=== PATIENT | male | born 1955 | race Caucasian/White ===

== ENCOUNTER 2018-05-22 14:21 | Inpatient (IN) | payer OTHER ==
[~2018-05-22] VITALS: Ht 182.9 cm; Wt 109.8 kg
[2018-05-22] MEDS ORDERED: FERR SULFATE325 MG PO (15:13)
[2018-05-22] MEDS ORDERED: LOPID600 MG PO (15:14)
[2018-05-22] MEDS ORDERED: ATORVASTATIN CA40 MG PO (15:15)
[2018-05-22] MEDS ORDERED: LISINOPRIL10 MG PO (15:15)
[2018-05-22] MEDS ORDERED: PHENOBARB64.8 MG PO (15:16)
[2018-05-22] MEDS ORDERED: EPIVIR300 MG PO (15:16)
[2018-05-22] MEDS ORDERED: SUSTIVA600 MG PO (15:17)
[2018-05-22] MEDS ORDERED: VIREAD300 MG PO (15:18)
[2018-05-22] MEDS ORDERED: ATORVASTATIN CA20 MG PO (15:18)
[2018-05-22] MEDS ORDERED: PERCOGESI1 PO (15:20)
[2018-05-22 16:10] LABS: HEMATOCRIT 33.4 % (39.0-50.0); HEMOGLOBIN 11.4 g/dl (14.0-18.0); IMMATURE GRANULOCYTES 0.7 % (0.0-5.0); MEAN CELL VOLUME 94.6 fL CALC (80.0-100.0); MEAN CORPUSCULAR HGB 32.3 pG CALC (26.0-32.0); MEAN CORPUSCULAR HGB CONC 34.1 g/L CALC (32.0-36.0); NEUT# 18.75 thou/uL (1.82-7.42); RED BLOOD COUNT 3.53 mill/uL (4.70-6.10); RED CELL DISTRI WIDTH 14.9 % (11.5-15.5)
[2018-05-22 16:27] LABS: ALBUMIN 4.1 g/dL (3.2-5.0); BILIRUBIN, TOTAL 0.5 mg/dL (0.0-1.4); CREATININE 2.2 mg/dL (0.7-1.3); POTASSIUM 4.2 mmol/l (3.5-5.1); TOTAL PROTEIN 7.3 g/dL (6.3-8.2)
[2018-05-22 21:00] VITALS: BP 124/76
[2018-05-22 21:36] LABS: URINE BILIRUBIN - DIPSTICK NEGATIVE (NEGATIVE); URINE BLOOD DIPSTICK LARGE (NEGATIVE); URINE COLOR YELLOW; URINE GLUCOSE - DIPSTICK NEGATIVE (NEGATIVE); URINE KETONE NEGATIVE (NEGATIVE); URINE LEUK ESTERASE NEGATIVE (NEGATIVE); URINE NITRITE - DIPSTICK NEGATIVE (Negative); URINE PH 5.5 (4.5-8.0); URINE PROTEIN - DIPSTICK TRACE mg/dL (NEG-TRACE); URINE UROBILINOGEN - DIPSTICK 0.2 E.U./dL (0.2)
[2018-05-22 21:37] LABS: URINE CLARITY CLEAR
[2018-05-22 21:46] LABS: URINE RBC 25-50 RBC/hpf (0-5); URINE SQUAMOUS EPITHELIAL CELL FEW EPI/hpf (0-FEW)
[2018-05-23 00:15] VITALS: BP 108/60
[2018-05-23 05:03] VITALS: BP 114/69
[2018-05-23 09:33] VITALS: BP 103/57
[2018-05-23 11:45] LABS: HEMATOCRIT 30.6 % (39.0-50.0); HEMOGLOBIN 10.2 g/dl (14.0-18.0); IMMATURE GRANULOCYTES 0.4 % (0.0-5.0); MEAN CELL VOLUME 95.9 fL CALC (80.0-100.0); MEAN CORPUSCULAR HGB CONC 33.3 g/L CALC (32.0-36.0); NEUT# 10.37 thou/uL (1.82-7.42); RED BLOOD COUNT 3.19 mill/uL (4.70-6.10); RED CELL DISTRI WIDTH 14.9 % (11.5-15.5)
[2018-05-23 12:03] LABS: ANION GAP 12 (6-22 (CALC)); BUN 26 mg/dL (8-23); BUN/CREATININE RATIO 19 (12-20 (CALC)); CARBON DIOXIDE 22 mmol/l (22-30); CHLORIDE 112 mmol/l (95-108); CREATININE 1.3 mg/dL (0.7-1.3); GFR 56 ML/MIN (>=60 (CALC)); GFR FOR AFR.AMER. > 60 ML/MIN (>=60 (CALC)); POTASSIUM 3.7 mmol/l (3.5-5.1); SODIUM 143 mmol/l (137-146)
[2018-05-23 13:00] VITALS: BP 100/60
[2018-05-23 16:00] VITALS: BP 107/64
[2018-05-23 19:51] VITALS: BP 101/59
[2018-05-24 00:29] VITALS: BP 124/78
[2018-05-24 05:17] VITALS: BP 114/66
[2018-05-24 05:55] LABS: ANION GAP 14 (6-22 (CALC)); BUN 16 mg/dL (8-23); BUN/CREATININE RATIO 15 (12-20 (CALC)); CARBON DIOXIDE 21 mmol/l (22-30); CHLORIDE 113 mmol/l (95-108); CREATININE 1.1 mg/dL (0.7-1.3); GFR > 60 ML/MIN (>=60 (CALC)); GFR FOR AFR.AMER. > 60 ML/MIN (>=60 (CALC)); POTASSIUM 4.1 mmol/l (3.5-5.1); SODIUM 144 mmol/l (137-146)
[2018-05-24 05:58] LABS: HEMOGLOBIN 9.7 g/dl (14.0-18.0); IMMATURE GRANULOCYTES 0.4 % (0.0-5.0); MEAN CELL VOLUME 97.4 fL CALC (80.0-100.0); MEAN CORPUSCULAR HGB 31.5 pG CALC (26.0-32.0); MEAN CORPUSCULAR HGB CONC 32.3 g/L CALC (32.0-36.0); NEUT# 6.84 thou/uL (1.82-7.42); RED BLOOD COUNT 3.08 mill/uL (4.70-6.10); RED CELL DISTRI WIDTH 15.2 % (11.5-15.5)
[2018-05-24 09:05] VITALS: BP 113/64
[2018-05-24 11:25] VITALS: BP 133/66
[2018-05-24 11:35] LABS: C. DIFFICILE TOXIN A&B NEGATIVE (NEGATIVE)
[2018-05-24 15:37] VITALS: BP 116/67
[2018-05-24 19:38] VITALS: BP 126/80
[2018-05-25] VITALS (7 sets, daily range): BP systolic 105–141; BP diastolic 59–87
[2018-05-25 05:10] LABS: HEMATOCRIT 31.9 % (39.0-50.0); HEMOGLOBIN 10.4 g/dl (14.0-18.0); MEAN CELL VOLUME 97.3 fL CALC (80.0-100.0); MEAN CORPUSCULAR HGB 31.7 pG CALC (26.0-32.0); MEAN CORPUSCULAR HGB CONC 32.6 g/L CALC (32.0-36.0); RED BLOOD COUNT 3.28 mill/uL (4.70-6.10); RED CELL DISTRI WIDTH 15.1 % (11.5-15.5)
[2018-05-25 05:33] LABS: ALBUMIN 3.6 g/dL (3.2-5.0); ALKALINE PHOSPHATASE 78 u/l (38-126); ANION GAP 13 (6-22 (CALC)); BILIRUBIN, TOTAL 0.3 mg/dL (0.0-1.4); BUN 12 mg/dL (8-23); BUN/CREATININE RATIO 12 (12-20 (CALC)); CARBON DIOXIDE 24 mmol/l (22-30); CHLORIDE 111 mmol/l (95-108); GFR > 60 ML/MIN (>=60 (CALC)); GFR FOR AFR.AMER. > 60 ML/MIN (>=60 (CALC)); POTASSIUM 4.4 mmol/l (3.5-5.1); SGOT/AST 38 u/l (19-48); SGPT/ALT 42 u/l (11-66); SODIUM 145 mmol/l (137-146); TOTAL PROTEIN 6.8 g/dL (6.3-8.2)
[2018-05-26 00:40] VITALS: BP 137/77
[2018-05-26 04:45] VITALS: BP 138/85
[2018-05-26 09:07] VITALS: BP 129/68
[2018-05-26] MEDS ORDERED: MIRALAX3350 NF PO (09:20)
[2018-05-26] MEDS ORDERED: FLORASTOR250 M1 PO (09:20)
[2018-05-26] MEDS ORDERED: AUGMENTIN875TAB PO (09:20)
[2018-05-26] MEDS ORDERED: DOXYCYCL HYC100 MG PO (09:20)
== END 2018-05-26 13:54 | DRG 975 ==
LOC: ED 14:21 → ED-I 20:00 → ED 20:13 → MS2 20:14
PROVIDERS: Family Medicine; Internal Medicine; ADMIT General Practice; ATTEND General Practice
PROC: 02HV33Z Insertion of Infusion Device into Superior Vena Cava, Percutaneous Approach (ICD-10-PCS; principal; 2018-05-22)
DX: A41.9 Sepsis, unspecified organism (principal); B20 Human immunodeficiency virus [HIV] disease; L03.116 Cellulitis of left lower limb; R65.20 Severe sepsis without septic shock; N17.9 Acute kidney failure, unspecified; I47.2 Ventricular tachycardia; I25.10 Atherosclerotic heart disease of native coronary artery without angina pectoris; G40.909 Epilepsy, unspecified, not intractable, without status epilepticus; K59.00 Constipation, unspecified; I87.2 Venous insufficiency (chronic) (peripheral); K40.90 Unilateral inguinal hernia, without obstruction or gangrene, not specified as recurrent; R19.7 Diarrhea, unspecified; D63.8 Anemia in other chronic diseases classified elsewhere; R59.0 Localized enlarged lymph nodes
CPT/HCPCS: J1650; J3370

== ENCOUNTER 2019-06-23 00:41 | Inpatient (IN) | payer OTHER ==
[~2019-06-23] VITALS: Ht 182.9 cm; Wt 110.8 kg
[2019-06-23] VITALS (67 sets, daily range): BP systolic 62–172; BP diastolic 35–97
--- NOTE | 2019-06-23 00:01 | NUR ---
eyes closed. no distress. campus monitor shows sinus rhythm hr 82.
[~2019-06-23 00:41] MED LIST: ATORVASTATIN CA20 MG PO; ATORVASTATIN CA40 MG PO; AUGMENTIN875TAB PO; DOXYCYCL HYC100 MG PO; EPIVIR300 MG PO; FERR SULFATE325 MG PO; FLORASTOR250 M1 PO; LISINOPRIL10 MG PO; LOPID600 MG PO; MIRALAX3350 NF PO; PERCOGESI1 PO; PHENOBARB64.8 MG PO; SUSTIVA600 MG PO; VIREAD300 MG PO
--- NOTE | 2019-06-23 00:41 | NUR ---
PT ARRIVED VIA EMS IN [facility] WITH REPORTED HYPOTENSION FEVERS PT HAS HAD 1100CC NSS BOLUS PER EMS FOR LOW BP.PT HAS RED INJESTED LLE WHICH IS CHRONIC PER CHART AND ESCORTS FROM FACILITY PT IS A/O X3 DENIES PAIN NO SOB.
[2019-06-23] MEDS ORDERED: DOXEPIN HCL100 MG PO (01:24)
[2019-06-23] MEDS ORDERED: ROCEPHIN 1 GM1 GM IM (01:25)
[2019-06-23] MEDS ORDERED: CIPRO400 MG/200 IV (01:26)
[2019-06-23] MEDS ORDERED: LEVETIRACETAM500 MG PO (01:32)
[2019-06-23] MEDS ORDERED: FLUOXETINE20 MG PO (01:33)
[2019-06-23] MEDS ORDERED: HALOPERIDOL10 MG PO (01:34)
[2019-06-23] MEDS ORDERED: ACETAMINOPHEN325 MG PO (01:37)
[2019-06-23 01:38] LABS: IMMATURE GRANULOCYTES 0.9 % (0.0-5.0); MEAN CELL VOLUME 90.5 fL CALC (80.0-100.0); MEAN CORPUSCULAR HGB 29.7 pG CALC (26.0-32.0); MEAN CORPUSCULAR HGB CONC 32.9 g/L CALC (32.0-36.0); RED BLOOD COUNT 3.16 mill/uL (4.70-6.10); RED CELL DISTRI WIDTH 16.9 % (11.5-15.5)
[2019-06-23 01:40] LABS: HEMATOCRIT 28.6 % (39.0-50.0); HEMOGLOBIN 9.4 g/dl (14.0-18.0); PLATELET COUNT 212 thou/uL (130-400)
[2019-06-23 01:41] LABS: MANUAL DIFFERENTIAL YES
--- NOTE | 2019-06-23 01:50 | NUR ---
BP HAS FALLEN SEE VS FLOW SHEET DR Carr INFORMED
[2019-06-23 01:56] LABS: ALBUMIN 3.4 g/dL (3.2-5.0); BILIRUBIN, TOTAL 0.5 mg/dL (0.0-1.4); CREATININE 1.5 mg/dL (0.7-1.3); POTASSIUM 3.6 mmol/l (3.5-5.1); TOTAL PROTEIN 6.4 g/dL (6.3-8.2)
[2019-06-23 02:04] LABS: BAND 4 % (0-8)
--- NOTE | 2019-06-23 02:45 | NUR ---
SR NO ECTOPY W/P/D SKIN PT UNABLE TO VOID DR Lilly THRASHER
--- NOTE | 2019-06-23 03:05 | NUR ---
17F KOVACS INSERTED PER ADITYA HARRIS YELLOW URINE 200CC RETURN SPEC TO LAB
[2019-06-23 03:27] LABS: URINE BILIRUBIN - DIPSTICK NEGATIVE (NEGATIVE); URINE BLOOD DIPSTICK TRACE-INTACT (NEGATIVE); URINE COLOR YELLOW; URINE GLUCOSE - DIPSTICK NEGATIVE (NEGATIVE); URINE KETONE NEGATIVE (NEGATIVE); URINE NITRITE - DIPSTICK NEGATIVE (Negative); URINE PH 5.5 (4.5-8.0); URINE PROTEIN - DIPSTICK TRACE mg/dL (NEG-TRACE); URINE UROBILINOGEN - DIPSTICK 0.2 E.U./dL (0.2)
[2019-06-23 03:30] LABS: URINE LEUK ESTERASE NEGATIVE (NEGATIVE)
--- NOTE | 2019-06-23 04:25 | NUR ---
PHONE REPORT TO NURSE SYDNI IN ICU
--- NOTE | 2019-06-23 04:30 | NUR ---
PT TRANSPORTED TO ICU VIA STRETCHER IN STABLE CONDITION
--- NOTE | 2019-06-23 04:30 | NUR ---
63 yr old male admitted icu5 per stretcher from er. transferred self to bed. bed weight obtained. lle red & edematous. photo taken. lunchroom monitor shows sinus rhythm hr 96. #18 rac saline lock. #18 lt hand. ns bolus cont. history obtained per pt, er record & [facility] record. oriented to room. fall precautions initiated. guards x 2 @ bedside.
--- NOTE | 2019-06-23 06:45 | NUR ---
REPORT RECEIVED PT RESTING IN BED RESP ARE EVEN AND UNLABORED. NO DISTRESS NOTED.
--- NOTE | 2019-06-23 07:45 | NUR ---
PT SET UP FOR AM MEAL
--- NOTE | 2019-06-23 08:00 | NUR ---
PT RESTING IN BED ASLEEP AROUSES TO VERBAL STIMULI. PT IS ALERT ORIENTED TO SELF AND PLACE. PT STATES THAT IT IS 2009. REORIENTATION SUCCESSFUL. PT STATES THAT HE HAS "PAIN WITH SWEAT".QUESTIONED PATIENT TO WHAT HE MEANT PATIENT UNABLE TO DESCRIBE WHAT HE MEANT. LEFT LOWER EXTREMTITY RED WARM TO TOUCH AND 2+ EDEMA NOTED. GOOD PEDAL PULSES. 2 GUARDS AT BEDSIDE. R LEG SHACKLED. KOVACS DRAINING CLEAR YELLOW URINE. CALL LIGTH IN REACH. WILL CONTINUE TO MONITOR.
--- NOTE | 2019-06-23 08:15 | NUR ---
DR ALEXANDER CALLED FOR UPDATE. UPDATE PROVIDED. NEW ORDERS RECEIVED
--- NOTE | 2019-06-23 08:25 | NUR ---
DR ALEXANDER PHONED FOR UPDATE. NEW ORDERS RECEIVED.
--- NOTE | 2019-06-23 08:33 | NUR ---
UPDATE PROVIDED TO LIZY ADKINS AT [facility]
--- NOTE | 2019-06-23 08:40 | NUR ---
PT TO ULTRASOUND AT THIS TIME VIA WHEELCHAIR ACCOMPANIED BY IN FLIGHT TECHNICIAN
--- NOTE | 2019-06-23 09:05 | NUR ---
PT RETUNED FROM RADIOLOGY VIA WHEELCHAIR ASSISTED BACK TO BED.
--- NOTE | 2019-06-23 09:08 | NUR ---
S: EDD WOODARD is a 63 M who presents with LEFT LEG CELLULITIS. He has a history of MENTAL DISORDER, SEIZURE DISORDER, HIV, AND CAD. All medications in patient's chart were reviewed. O: VS: BP 92/60 MMHG, P 86 BPM, RR 16 BPM, T 97.2 F ACTUAL BW 110.79 KG, ADJ BW 90.9 KG, HT 72 IN, Scr= 1.5 MG/DL, CrCl= 65.7 ml/min A: Blood culture is pending. P: Patient is on ZOSYN 3.375 G IV Q6H. Vancomycin ordered for pharmacy to dose. Start Vancomycin 1000MG IV Q12H AT 0200 AND 1400. Vancomycin trough is drawn before the 4th dose on 06/25/19 @ 0130. Vancomycin goal trough is between 10-15 mcg/ml. Pharmacy will follow and or advise on antibiotics use as needed.
[2019-06-23] MEDS ORDERED: BACLOFEN20 MG PO (09:37)
[2019-06-23] MEDS ORDERED: BENADRYL 50MG C50 MG PO (09:42)
--- NOTE | 2019-06-23 10:00 | NUR ---
DR ALEXANDER AT BEDSIDE AT THIS TIME. BP 75/45. PT IMMEADIATELY PLACED IN TRENDELENBERG. EW ORDERS RECEIVED.
--- NOTE | 2019-06-23 10:05 | NUR ---
PHONED ER FOR CENTRAL LINE PLACEMENT
--- NOTE | 2019-06-23 10:20 | NUR ---
LEVOPHED STARTED PER TITRATION AT [facility]. 1000CC BOLUS IVF INFUSING. BP [id number]
--- NOTE | 2019-06-23 10:30 | NUR ---
PHENYLEPHRINE 100MCG GIVEN IVP BY Kaylie KWON RN PER ORDERS
--- NOTE | 2019-06-23 10:40 | NUR ---
CONSENT OBTAINED FOR CENTRAL LINE PLACEMENT AND BLOOD AND OR BLOOD PRODUCTS
--- NOTE | 2019-06-23 10:45 | NUR ---
ER NOTIFIED THAT THEY WERE NOT AVAILABLE AT THIS TIME TO ASSIST IN CENTRAL LINE
--- NOTE | 2019-06-23 10:52 | NUR ---
GABBY A RIAN AT THIS TIME
[2019-06-23 11:09] LABS: HEMATOCRIT 29.6 % (39.0-50.0); HEMOGLOBIN 9.7 g/dl (14.0-18.0); MEAN CELL VOLUME 91.4 fL CALC (80.0-100.0); MEAN CORPUSCULAR HGB 29.9 pG CALC (26.0-32.0); MEAN CORPUSCULAR HGB CONC 32.8 g/L CALC (32.0-36.0); RED BLOOD COUNT 3.24 mill/uL (4.70-6.10); RED CELL DISTRI WIDTH 17.1 % (11.5-15.5)
[2019-06-23 11:31] LABS: ANION GAP 12 (6-22 (CALC)); BUN 27 mg/dL (8-23); BUN/CREATININE RATIO 23 (12-20 (CALC)); CARBON DIOXIDE 20 mmol/l (22-30); CHLORIDE 109 mmol/l (95-108); CREATININE 1.2 mg/dL (0.7-1.3); GFR > 60 ML/MIN (>=60 (CALC)); GFR FOR AFR.AMER. > 60 ML/MIN (>=60 (CALC)); POTASSIUM 3.7 mmol/l (3.5-5.1); SODIUM 138 mmol/l (137-146)
--- NOTE | 2019-06-23 11:35 | NUR ---
DR MARKHAM AND DR ALEXANDER AT BEDSIDE AT THIS TIME FOR CENTRAL LINE PLACEMENT
--- NOTE | 2019-06-23 12:06 | NUR ---
RADIOLOGY AT BEDSIDE AT THIS TIME TO CONFIRM CENTRAL LINE PLACEMENT.
--- NOTE | 2019-06-23 14:00 | NUR ---
PT RESTING IN BED. GURADS AT BEDSIDE. RESP ARE EVEN AND UNLABORED. NO DISTRESS NOTED. CALL LIGHT IN REACH. WILL CONTINUE TO MONITOR.
--- NOTE | 2019-06-23 16:00 | NUR ---
PT SECRETARY TO BOARD OF COMMISSIONERS LIGHT TO STATE THAT HIS LEG IS PAINFUL WHEN HE WALKS. EXPLAINED TO PATIENT THAT HE HAD NOT BEEN OUT OF BED. PT AGREED AND VERBALIZED UNDERSTANDING. PT STATES THAT THERE IS PAIN WHEN HE USES IT TO BOOST SELF UP IN BED. QUESTIONED IS THERE CONSTANT PAIN. PT STATED NO. EXPLAINED THAT I WAS APPREHENSIVE TO GIVE A MED FOR PAIN THAT HAD THE POTENTIAL TO LOWER BP DUE TO BEING ON MEDICATIONS TO RAISE BP. PT VERBALIZED UNDERSTANDING AND AGREED TO TREATMENT PLAN.
--- NOTE | 2019-06-23 17:30 | NUR ---
PT SET UP FOR PM MEAL AT THIS TIME.
--- NOTE | 2019-06-23 18:20 | NUR ---
PT RESTING IN BED WTIH EYES CLOSED. RESP ARE EVEN AND UNLABORED. NO DISTRESS NOTED. CALL LIGHT IN REACH. WILL CONTINUE TO MONITOR.
--- NOTE | 2019-06-23 19:00 | NUR ---
awakens easily. denies distress. o2 cont per nc. relief map modeler shows sinus rhythm hr 88. #20 lt hand ns infusing @ 100cchr, #18 rac & rij tlc saline locks in place. refused po fluids. king cath in place. urine clear yellow. fall precautions cont. guards x2 @ bedside.
--- NOTE | 2019-06-23 21:21 | NUR ---
c/o "feel hot." temp 99.7. blanket removed. drank 1 glass of h2o.
[2019-06-24] VITALS (27 sets, daily range): BP systolic 73–153; BP diastolic 40–81
--- NOTE | 2019-06-24 02:00 | NUR ---
resting quietly. resps veronica & unlabored. no apparent distress.
--- NOTE | 2019-06-24 04:00 | NUR ---
blood drawn & sent to lab.
[2019-06-24 04:29] LABS: HEMATOCRIT 26.3 % (39.0-50.0); HEMOGLOBIN 8.6 g/dl (14.0-18.0); MEAN CORPUSCULAR HGB 29.8 pG CALC (26.0-32.0); MEAN CORPUSCULAR HGB CONC 32.7 g/L CALC (32.0-36.0); RED BLOOD COUNT 2.89 mill/uL (4.70-6.10); RED CELL DISTRI WIDTH 17.3 % (11.5-15.5)
[2019-06-24 04:48] LABS: ALBUMIN 2.9 g/dL (3.2-5.0); ALKALINE PHOSPHATASE 74 u/l (38-126); ANION GAP 10 (6-22 (CALC)); BILIRUBIN, TOTAL 0.3 mg/dL (0.0-1.4); BUN 16 mg/dL (8-23); BUN/CREATININE RATIO 15 (12-20 (CALC)); CARBON DIOXIDE 23 mmol/l (22-30); CHLORIDE 114 mmol/l (95-108); GFR > 60 ML/MIN (>=60 (CALC)); GFR FOR AFR.AMER. > 60 ML/MIN (>=60 (CALC)); POTASSIUM 3.9 mmol/l (3.5-5.1); SGOT/AST 45 u/l (19-48); SODIUM 143 mmol/l (137-146); TOTAL PROTEIN 5.9 g/dL (6.3-8.2)
--- NOTE | 2019-06-24 05:56 | NUR ---
eyes closed. no distress. youth nutritional monitor shows sinus rhythm hr 65. guards x2 remain @ bedside.
--- NOTE | 2019-06-24 06:50 | NUR ---
RECIEVED REPORT FROM SUNIL TROY. ASSUMED PT CARE.
--- NOTE | 2019-06-24 07:30 | NUR ---
PT RESTING IN BED, GUARDS AT BEDSIDE. PT A&OX3, ABLE TO MAKE NEEDS KNOWN. ASSESSMENT COMPLETED. PT AFEBRILE, CONTINUES WITH LLE EDEMA, REDNESS AND HEAT NOTED FROM KNEE TO ANKLE. PT STATES DISCOMFORT TO LLE. RIJ/TL CONTINUES WITH NS@100ML/HR. NO S/S OF INFILTRATION, REDNESS OR INFECTION AT SITE. KOVACS REMAINS PATENT, DRAINING TO BSD VIA GRAVITY. CLEAR YELLOW URINE NOTED. PT STATES LAST BM 06/20/19. ABDOMEN SOFT, DISTENDED, BS HYPOACTIVE X4. CALL LIGHT IN REACH. WILL MONITOR.
--- NOTE | 2019-06-24 08:30 | NUR ---
DR. ALEXANDER AT BEDSIDE FOR ASSESSMENT AND TO DISCUSS PLAN OF CARE, NEW ORDERS RECIEVED.
--- NOTE | 2019-06-24 09:18 | NUR ---
Valerie COOPER RN FROM [facility] CALLED FOR UPDATE ON PT.
--- NOTE | 2019-06-24 09:57 | NUR ---
PT NOTED LAYING ON R SIDE, WITH PILLOW BETWEEN LEG. PT REPORTS DISCOMFORT 5/10 TO LLE, MEDICATED WITH TYLENOL ORDERED. PP+, CONTINUES WITH REDNESS AND EDEMA TO LLE, HEAT BLE. PT WITH B/P 86/52, [facility]. WILL MONITOR CLOSELY, GUARDSX2 AT BEDSIDE. RETURNED PHONE CALL TO PATRICIO CONTRERAS @[phone], LEFT MESSAGE.
--- NOTE | 2019-06-24 10:37 | NUR ---
PT B/P 73/47, DR. ALEXANDER NOTIFIED. NEW ORDERS RECIEVED.
--- NOTE | 2019-06-24 11:23 | NUR ---
DIETARY ON UNIT, LUNCH TRAY SET UP. HOB UP, PT REPOSITIONED. B/P 100/54.
--- NOTE | 2019-06-24 12:00 | NUR ---
PT ASSISTED TO BSC, LARGE BM, THEN BACK TO BED. PT TOLERATED TRANSFER WELL. CALL LIGHT IN REACH. WILL MONITOR.
--- NOTE | 2019-06-24 12:34 | NUR ---
PT ASKED WHAT TYPE OF SANDWICH HE ATE FOR LUNCH, PT STATED "IT TASTED LIKE FISH" AFTER CHECKING PT TRAY, PT NOTIFIED IT WAS IN FACT TUNAFISH SANDWICH HE HAD ORDERED AT BREAKFAST TIME. PT THEN STATED HE WAS ALLERGIC TO FISH, WHEN ASKED WHAT REACTION HE HAS HE STATED "I THINK I GET SOB, MY THROAT SWELLS" .PT VSS, NO REDNESS OR SWELLING NOTED AT FACE OR THROAT, NO SOB OR CHANGE IN RESPIRATIONS NOTED AT THIS TIME. NO PREVIOUS ALLERGY TO FISH NOTED. FISH ALLEGY NOTED IMMEDIATELY IN CHART AND DIETARY NOTIFIED. CALL LIGHT IN REACH. WILL MONITOR CLOSELY. GUARDSX2 REMAIN AT BEDSIDE.
--- NOTE | 2019-06-24 13:28 | NUR ---
PT RESTING IN BED, RESPIRATIONS EVEN. UNLABORED. OFFERS NO COMPLAINTS AT THIS TIME. LAB AT BEDSIDE FOR BLOOD DRAW.
--- NOTE | 2019-06-24 14:15 | NUR ---
NOTIFIED ANJELICA IN PHARMACY AND DR. ALEXANDER OF PT VANCO TROUGH 8.
--- NOTE | 2019-06-24 14:37 | NUR ---
S: EDD WOODARD is a 63 M who presents with CELLULITIS/SEPTIC SHOCK. He has a history of HIV, HX. OF DRUG ABUSE, AND RESIDES IN A [facility] CURRENTLY. All medications in patient's chart were reviewed. O: VS: BP 116/73, P 64, RR 18,T 97.2 Scr= 1 VANCOMYCIN TROUGH= 8 L A: Blood culture is pending. TROUGH IS SUBTHERAPEUTIC. INCREASE IN DOSE IS WARRANTED. P: Patient is on ZOSYN 3.375 GM IV Q6H AND VANCOMYCIN 1 GM IV Q12H. Vancomycin ordered for pharmacy to dose. INCREASE Vancomycin 1 GM IV Q8H. Vancomycin trough is drawn before the 4th dose on 06/25/19 AT 1330. Vancomycin goal trough is between 15-20 mcg/ml. Pharmacy will follow and or advise on antibiotics use as needed.
--- NOTE | 2019-06-24 16:37 | NUR ---
PT SLEEPING IN BED, OFFERS NO COMPLAINTS AT THIS TIME. CONTINUES ON LEVOPHED GTT @2MCG/MIN. CALL LIGHT IN REACH. WILL MONITOR.
--- NOTE | 2019-06-24 17:56 | NUR ---
PT RESTING IN BED WITH EYES CLOSED. PT DENIES DISCOMFORT AT THIS TIME. CALL LIGHT IN REACH. GUARDS REMAINS AT BEDSIDE. WILL MONITOR.
--- NOTE | 2019-06-24 19:15 | NUR ---
awakens easily. denies distress. o2 cont per nc. case monitor shows sinus rhythm hr 77. #20 lt hand & #18 rac saline locks. rij tlc in place ns @ 100cchr & levo infusing @ 2mcg/kg. po fluids taken well. king cath in place. urine clear yellow. lle remains red & edematous. shackle cont to rle. guards x2 remain @ bedside. fall precautions cont.
--- NOTE | 2019-06-24 22:00 | NUR ---
awake. no distress. keller machine operator shows sinus rhythm pvcs hr 76.
[2019-06-25] VITALS (26 sets, daily range): BP systolic 113–155; BP diastolic 54–87
--- NOTE | 2019-06-25 00:01 | NUR ---
eyes closed. no distress. guards x2 @ bedside.
--- NOTE | 2019-06-25 02:00 | NUR ---
resting quietly. resps even & unlabored. no apparent distress.
--- NOTE | 2019-06-25 04:45 | NUR ---
blood drawn & sent to lab.
[2019-06-25 05:06] LABS: HEMATOCRIT 27.5 % (39.0-50.0); MEAN CELL VOLUME 91.1 fL CALC (80.0-100.0); MEAN CORPUSCULAR HGB 29.8 pG CALC (26.0-32.0); MEAN CORPUSCULAR HGB CONC 32.7 g/L CALC (32.0-36.0); RED BLOOD COUNT 3.02 mill/uL (4.70-6.10); RED CELL DISTRI WIDTH 17.3 % (11.5-15.5)
[2019-06-25 05:30] LABS: ALBUMIN 3.1 g/dL (3.2-5.0); ALKALINE PHOSPHATASE 85 u/l (38-126); ANION GAP 11 (6-22 (CALC)); BILIRUBIN, TOTAL 0.4 mg/dL (0.0-1.4); BUN 11 mg/dL (8-23); BUN/CREATININE RATIO 13 (12-20 (CALC)); CARBON DIOXIDE 23 mmol/l (22-30); CHLORIDE 112 mmol/l (95-108); CREATININE 0.9 mg/dL (0.7-1.3); GFR > 60 ML/MIN (>=60 (CALC)); GFR FOR AFR.AMER. > 60 ML/MIN (>=60 (CALC)); POTASSIUM 3.9 mmol/l (3.5-5.1); SGOT/AST 51 u/l (19-48); SODIUM 142 mmol/l (137-146); TOTAL PROTEIN 6.3 g/dL (6.3-8.2)
--- NOTE | 2019-06-25 05:56 | NUR ---
eyes closed. no acute change in condition. no distress.
--- NOTE | 2019-06-25 06:45 | NUR ---
RECIEVED REPORT FROM SUNIL TROY. ASSUMED PT CARE.
--- NOTE | 2019-06-25 07:30 | NUR ---
PT RESTING IN BED, GUARDS X2 REMAIN AT BEDSIDE. A&OX3, ABLE TO MAKE NEEDS KNOWN. REMAINS NSR ON TELEMETRY, HR 84. DENIES CHEST PAIN, SOB OR DISTRESS AT THIS TIME, RESPIRATIONS EVEN/UNLABORED, SA02@95% RA, PT DECLINES 02@2LPM VIA NC AT THIS TIME. ABDOMEN DISTENDED, SOFT, NON-TENDER, LBM 06/25/19. BSX4 ACTIVE. LLE REMAIN RED, FROM CALF TO ANKLE, PP+. 18G TO RAC/SL, 20G TO LH/SL BOTH FLUSH WITHOUT DIFFICULTY, NO REDNESS OR S/S OF INFILTRATION AT SITE. RIJ/TL WITH NS@100ML/HR AND LEVOPHED @2MCG/MIN CONTINUES, NO S/S OF INFILTRATION OR INFECTION AT SITE. PT WITH TEMP OF 100.4, MEDICATED ORDERED. CALL LIGHT IN REACH. WILL MONITOR.
--- NOTE | 2019-06-25 07:50 | NUR ---
DIETARY ON UNIT, PT REPOSITIONED SELF, BREAKFAST TRAY SET UP.
--- NOTE | 2019-06-25 09:00 | NUR ---
PT ASSISTED TO BSC, LG YAMILA REED BM. THEN BACK TO BED. PT TOLERATED TRANSFER WELL. CALL LIGHT IN REACH, GUARDS REMAIN A BEDSIDE.WILL MONITOR.
--- NOTE | 2019-06-25 10:19 | NUR ---
PT RESTING IN BED WATCHING TV, OFFERS NO COMPLAINTS AT THIS TIME. AFEBRILE. NSR ON TELEMETRY.
--- NOTE | 2019-06-25 11:44 | NUR ---
DR. TATUM AT BEDSIDE FOR ASSESSMENT AND TO DISCUSS PLAN OF CARE, NEW ORDERS RECIEVED. DIETARY ON UNIT, PT REPOSITIONED SELF. LUNCH TRAY SET UP.
--- NOTE | 2019-06-25 14:10 | NUR ---
IV site TO LH &RAC discontinued, cath intact. No edema , no redness, voices no discomfort.
--- NOTE | 2019-06-25 14:28 | NUR ---
PT ASSISTED TO BSC, LARG BM NOTED. THEN BACK TO BED. PT TOLERATED TRANSFER WELL . GUARDSX2 REMAIN AT BEDSIDE. CALL LIGHT IN REACH. WILL MONITOR.
--- NOTE | 2019-06-25 14:39 | NUR ---
S: EDD WOODARD is a 63 M who presents with CELLULITIS/SEPTIC SHOCK. He has a history of HIV, HX. OF DRUG ABUSE, AND RESIDES IN A NURSING HOME CURRENTLY. All medications in patient's chart were reviewed. O: VS: BP 121/69, P 78, RR 16,T 97.9 Scr= 0.9 VANCOMYCIN TROUGH= 12 A: Blood culture is pending. TROUGH IS SUBTHERAPEUTIC. INCREASE IN DOSE IS WARRANTED. P: Patient is on ZOSYN 3.375 GM IV Q6H AND VANCOMYCIN 1 GM IV Q12H. Vancomycin ordered for pharmacy to dose. INCREASE Vancomycin 1.25 GM IV Q8H. Vancomycin trough is drawn before the 4th dose on 06/26/19 AT 2130. Vancomycin goal trough is between 15-20 mcg/ml. Pharmacy will follow and or advise on antibiotics use as needed. ANJELICA STEWARTD
--- NOTE | 2019-06-25 15:56 | NUR ---
PT RESTING IN BED WITH BLANKEY OVER HEAD. PT OFFERS NO COMPLAINTS AT THIS TIME. RESPIRATIONS EVEN/UNLABORED. NSR ON TELEMETRY, HR 70. CALL LIGHT IN REACH, GUARDS REMAIN AT BEDSIDE.
--- NOTE | 2019-06-25 17:37 | NUR ---
DIETARY ON UNIT, PT REPOSITIONED SELF. DINNER TRAY SET UP.
--- NOTE | 2019-06-25 19:50 | NUR ---
PT AWAKE RESTING IN BED WATCHING T.V. TWO GUARDS AT BEDSIDE. RESP EVEN AND UNLABORED. O2 SAT 96% ON R/. LUNGS CLEAR BILAT. RT IJ TRIPLE LUMEN IS PATENT WITH DRESSING CLEAN AND DRY. IVF NSS AT 100CC/HR. ABD SOFT AND NONDISTENDED WITH BOWEL SOUNDS PRESENT. KOVACS IS PATENT DRAINING CLEAR YELLOW URINE. PT HAS +3 EDEMA NOTED ON LEFT LOWER EXT. NO EDEMA NOTED ON RT LOWER EXT. PEDAL PULSES PALPATED BILAT. LEFT LOWER EXT IS RED FROM KNEE TO FOOT AND ELEVATED ON A PILLOW. PT OFFERS NO COMPLAINTS. VSS. B/P 134/69, AFEBRILE 98.9. MONITOR SR HR 70'S. FREQUENT ROUNDS MADE. CALL BRONSON WITHIN REACH .
--- NOTE | 2019-06-25 21:15 | NUR ---
PT RESTING IN BED WATCHING T.V. VSS. OFFERS NO COMPLAINTS. RT IJ PATENT NO REDNESS OR TENDERNESS AT SITE. TWO GUARDS AT BEDSIDE. FREQUENT ROUNDS MADE. CALL BRONSON WITHIN REACH.
--- NOTE | 2019-06-25 22:03 | NUR ---
RESTING IN BED WITH EYES CLOSED. VSS. NO DISTRESS NOTED. GUARDS AT BEDSIDE. KOVACS IS PATENT DRAINING CLEAR YELLOW URINE. FREQUENT ROUNDS MADE. CALL BRONSON WITHIN REACH.
[2019-06-26] VITALS (13 sets, daily range): BP systolic 106–165; BP diastolic 62–92
--- NOTE | 2019-06-26 00:16 | NUR ---
PT RESTING IN BED WITH EYES CLOSED. PT WOKE. PT AFEBRILE. SKIN WARM AND DRY. RT IJ IS PATENT WITH NSS AT 100CC/HR. LEFT LEG IS ELEVATED ON A PILLOW. PT DENIES ANY DISCOMFORT. TWO GUARDS AT BEDSIDE. RT LEG CUFFED TO THE BED. VSS. MONITOR READING SR. FREQUENT ROUNDS MADE. CALL BRONSON WITHIN REACH.
--- NOTE | 2019-06-26 02:10 | NUR ---
PT RESTING IN BED WITH EYES CLOSED. NO DISTRESS NOTED. RESP EVEN AND UNLABORED. RT IJ IS PATENT NSS AT 100CC/HR. FERMÍN IS PATENT. GUARDS AT BEDSIDE. FREQUENT ROUNDS MADE. CALL BRONSON WITHIN REACH.
--- NOTE | 2019-06-26 04:10 | NUR ---
VSS. RESTING IN BED WITH EYES CLOSED. NO DISTRESS NOTED. IJ IS PATENT. TWO GUARDS REMAIN AT BEDSIDE. MONITOR READING SR. B/P 143/66. FREQUENT ROUNDS MADE. CALL BRONSON WITHIN REACH.
--- NOTE | 2019-06-26 06:07 | NUR ---
RESTING IN BED WITH EYES CLOSED . ASSESSMENT UNCHANGED. IJ IS PATENT. LEFT LEG IS ELEVATED ON A PILLOW. OFFERS NO COMPLAINTS. MONITOR SR. GUARDS REMAIN AT BEDSIDE. CALL BRONSON WITHIN REACH.
--- NOTE | 2019-06-26 06:45 | NUR ---
RECIEVED REPORT FROM PATRICIO GALVAN. [facility] PT CARE.
[2019-06-26 06:47] LABS: HEMATOCRIT 27.5 % (39.0-50.0); IMMATURE GRANULOCYTES 1.7 % (0.0-5.0); MEAN CELL VOLUME 91.1 fL CALC (80.0-100.0); MEAN CORPUSCULAR HGB 29.8 pG CALC (26.0-32.0); MEAN CORPUSCULAR HGB CONC 32.7 g/L CALC (32.0-36.0); NEUT# 4.29 thou/uL (1.82-7.42); RED BLOOD COUNT 3.02 mill/uL (4.70-6.10); RED CELL DISTRI WIDTH 17.2 % (11.5-15.5)
--- NOTE | 2019-06-26 07:00 | NUR ---
PT SITTING UP IN BED. A&OX3, ABLE TO MAKE NEEDS KNOWN. SR ON TELEMETRY, HR 68. DENIES CHEST PAIN, SOB OR DISTRESS AT THIS TIME. REPIRATIONS EVEN/UNLABORED, SA02@95%RA, LS CLEAR THROUGHOUT. ABDOMEN SOFT, DISTENDED, NON-TENDER, BSX4 ACTIVE, LBM 9-21-19. CONTINUES WITH LLE REDNESS FROM KNEE TO ANKLE, LESS TODAY. +3 EDEMA, PP+ BLE. NO EDEMA NOTED RLE. PT REMAINS AFEBRILE.FOLET REMAINS PATENT, DRAINING CLEAR YELLOW URINE TO BSD VIA GRAVITY. RIJ/TL INFUSING NS@100ML/HR, SITE CDI, NO REDNESS/DISTENTION NOTED.GUARDS REMAIN AT BEDSIDE.CALL LIGHT IN REACH. WILL MONITOR.
[2019-06-26 07:05] LABS: ANION GAP 11 (6-22 (CALC)); BUN 9 mg/dL (8-23); BUN/CREATININE RATIO 10 (12-20 (CALC)); CARBON DIOXIDE 28 mmol/l (22-30); CHLORIDE 108 mmol/l (95-108); CREATININE 0.9 mg/dL (0.7-1.3); GFR > 60 ML/MIN (>=60 (CALC)); GFR FOR AFR.AMER. > 60 ML/MIN (>=60 (CALC)); POTASSIUM 3.8 mmol/l (3.5-5.1); SODIUM 143 mmol/l (137-146)
--- NOTE | 2019-06-26 07:41 | NUR ---
PT REPOSITIONED SELF, BREAKFAST TRAY SET UP.
--- NOTE | 2019-06-26 10:00 | NUR ---
DR. TATUM AT BEDSIDE FOR ASSESSMENT AND TO DISCUSS PLAN OF CARE. NEW ORDERS RECIEVED.
--- NOTE | 2019-06-26 11:00 | NUR ---
PT ASSISTED TO BSC, LARGE SOFT BM. THEN BACK TO BED.
--- NOTE | 2019-06-26 12:49 | NUR ---
PT RESTING IN BED, WITH HEAD COVERED WITH BLANKET. RESPIRATIONS EVEN/UNLABORED, AFEBRILE, TEMP 97.6. PT OFFERS NO COMPLAINTS AT THIS TIME. CALL LIGHT IN REACH. WILL MONITOR.
--- NOTE | 2019-06-26 13:38 | NUR ---
REPORT CALLED TO PATRICIO WOODS. TRANSFERRED PT TO MS2, BED 260. GUARDS REMAIN WITH PT.
--- NOTE | 2019-06-26 14:00 | NUR ---
PT RECEIVED TO M/S ROOM 260 FROM ICU VIA WHEELCHAIR, ACCOMPANIED BY TWO GUARDS. PT IS APPROPRIATE, SLOW TO ANSWER. LEFT LEG CELLULITIC, 3+ EDEMATOUS.
--- NOTE | 2019-06-26 16:28 | NUR ---
PT AT REST IN THE BED, NO DISTRESS, NO CHANGE IN STATUS.
--- NOTE | 2019-06-26 18:25 | NUR ---
PT REMAINS AT REST IN THE BED, ABX INFUSING ORDERED.
--- NOTE | 2019-06-26 19:08 | NUR ---
REPORT FROM PEGGY RN. PT RESTING IN BED. ALERT AND ORIENTED. NO APPARENT RESPIRATORY DISTRESS NOTED. X2 GUARDS PRESENT IN ROOM. IV SITE APPEARS HEALTHY, DRESSING CDI. PT DENIES ANY PAIN OR DISCOMFORT. DISCUSSED POC. PT VERBALIZED UNDERSTANDING. CALL LIGHT WITHIN REACH. WILL CONTINUE TO MONITOR.
--- NOTE | 2019-06-26 21:35 | NUR ---
VANCO TROUGH COLLECTED FROM TRIPLE LUMEN IJ PER PROTOCOL. PT TOLERATED WELL.
--- NOTE | 2019-06-27 00:57 | NUR ---
PT RESTING IN BED WITH EYES CLOSED. X2 GUARDS AT BEDSIDE. PT SHACKLED TO BED. NO APPARENT DISTRESS NOTED. IV ABT INFUSING WITHOUT DIFFICULTY. CALL LIGHT WITHIN REACH. WILL CONTINUE TO MONITOR.
[2019-06-27 04:00] VITALS: BP 152/84
--- NOTE | 2019-06-27 04:58 | NUR ---
PT RESTING IN BED WITH EYES CLOSED. STATUS UNCHANGED. X2 GUARDS REMAIN AT BEDSIDE. IV FLUIDS INFUSING WITHOUT DIFFICULTY. CALL LIGHT WITHIN REACH.
[2019-06-27 07:33] VITALS: BP 160/75
--- NOTE | 2019-06-27 08:00 | NUR ---
REPORT WAS RECEIVED FROM YONATAN. ASSESSMENT DONE. PT IS A&O X3. PT DENIES PAIN AT THIS TIME. RESPS EVEN AND UNLABORED. TELE IN PLACE. X2 GUARDS IN ROOM. KOVACS IS PATENT WITH YELLOW URINE. +2 BLE AND MILDY RED. PT DENIES NEEDS AT THIS TIME. CALL LIGHT IN REACH.
[2019-06-27] MEDS ORDERED: DOXYCYCL HYC100 MG PO (09:22)
[2019-06-27] MEDS ORDERED: AMOX/K CLAV875 M1 PO (09:22)
--- NOTE | 2019-06-27 09:45 | NUR ---
CALLED JOSELYN FROM [facility] TO GAVE UPDATE RE: PT POC D/C TODAY.
--- NOTE | 2019-06-27 09:58 | NUR ---
REMOVED PT KOVACS AND PT TOLERATED WELL. X2 GUARDS IN ROOM.
[2019-06-27 11:00] VITALS: BP 146/79
--- NOTE | 2019-06-27 11:10 | NUR ---
S: EDD WOODARD is a 63 M who presents with CELLULITIS/SEPTIC SHOCK . He has a history of HIV, DRUG ABUSE. Pt resides in nursing home currently. All medications in patient's chart were reviewed. O: VS: BP 146/79mmHg, P 73bpm , RR 22bpm , T 97.4 F W 110.79 kg, HT 72 inches, Scr=0.9mg/dL, UnYl=716.4ml/min Vanco Trough= 19 mcg/ml A: Blood culture is pending. P: Patient is on VANCOMYCIN 1.25 G IV Q8H and ZOSYN 3.375 G IV Q8H. Pt being discharged today on Augmentin 875mg PO BID X 10 days and Doxycycline 100mg PO BID x 10 days. Vancomycin ordered for pharmacy to dose. Vancomycin goal trough is between 15-20 mcg/ml. Pharmacy will follow and or advise on antibiotics use as needed.
--- NOTE | 2019-06-27 11:56 | NUR ---
Discharge instructions given. Patient verbalizes understanding of same. Discharged in stable condition via Wheelchair to X2 GUARDS with staff. All belongings sent with pt.
== END 2019-06-27 11:55 | disposition designated cancer center or children's hospital (05) | DRG 871 ==
LOC: ED 00:41 → ED-I 01:20 → ED 03:37 → ICU 03:38 → MS2 06-26 13:56
PROVIDERS: Emergency Medicine; Internal Medicine; ADMIT Internal Medicine; ATTEND Internal Medicine
PROC: 02HV33Z Insertion of Infusion Device into Superior Vena Cava, Percutaneous Approach (ICD-10-PCS; principal; 2019-06-23)
PROC: 0T9B70Z Drainage of Bladder with Drainage Device, Via Natural or Artificial Opening (ICD-10-PCS; 2019-06-23)
DX: A41.9 Sepsis, unspecified organism (principal); R65.21 Severe sepsis with septic shock; L03.116 Cellulitis of left lower limb; N17.9 Acute kidney failure, unspecified; I10 Essential (primary) hypertension; I95.9 Hypotension, unspecified; I89.0 Lymphedema, not elsewhere classified; I25.10 Atherosclerotic heart disease of native coronary artery without angina pectoris; D63.8 Anemia in other chronic diseases classified elsewhere; G40.909 Epilepsy, unspecified, not intractable, without status epilepticus; Z95.5 Presence of coronary angioplasty implant and graft; Z21 Asymptomatic human immunodeficiency virus [HIV] infection status; Z86.718 Personal history of other venous thrombosis and embolism
CPT/HCPCS: J1650; J3370

== ENCOUNTER 2020-08-04 14:40 | Emergency (ER) | payer OTHER ==
[~2020-08-04] VITALS: Ht 182.9 cm; Wt 115.5 kg
[~2020-08-04 14:40] MED LIST changes: +ACETAMINOPHEN325 MG PO; +AMOX/K CLAV875 M1 PO; +BACLOFEN20 MG PO; +BENADRYL 50MG C50 MG PO; +CIPRO400 MG/200 IV; +DOXEPIN HCL100 MG PO; +FLUOXETINE20 MG PO; +HALOPERIDOL10 MG PO; +LEVETIRACETAM500 MG PO; +MINERI1 TOP; +ROCEPHIN 1 GM1 GM IM
[2020-08-04 15:42] LABS: IMMATURE GRANULOCYTES 0.6 % (0.0-5.0); MEAN CELL VOLUME 93.5 fL CALC (80.0-100.0); MEAN CORPUSCULAR HGB 30.3 pG CALC (26.0-32.0); MEAN CORPUSCULAR HGB CONC 32.4 g/dL CAL (32.0-36.0); NEUT# 17.34 thou/uL (1.82-7.42); RED BLOOD COUNT 2.77 mill/uL (4.70-6.10); RED CELL DISTRI WIDTH 15.6 % (11.5-15.5)
[2020-08-04 15:47] LABS: HEMATOCRIT 25.9 % (39.0-50.0); HEMOGLOBIN 8.4 g/dl (14.0-18.0)
[2020-08-04 15:58] LABS: ALBUMIN 4.6 g/dL (3.2-5.0); CREATININE 1.8 mg/dL (0.7-1.3); POTASSIUM 4.3 mmol/l (3.5-5.1); TOTAL PROTEIN 8.9 g/dL (6.3-8.2)
[2020-08-04 15:59] LABS: BILIRUBIN, TOTAL 0.5 mg/dL (0.0-1.4)
[2020-08-04 16:19] LABS: URINE BILIRUBIN - DIPSTICK NEGATIVE (NEGATIVE); URINE BLOOD DIPSTICK LARGE (NEGATIVE); URINE COLOR RED; URINE GLUCOSE - DIPSTICK 100 mg/dL (NEGATIVE); URINE KETONE 15 mg/dL (NEGATIVE); URINE PROTEIN - DIPSTICK >=300 mg/dL (NEG-TRACE); URINE SPECIFIC GRAVITY 1.015; URINE UROBILINOGEN - DIPSTICK >=8.0 E.U./dL (0.2)
[2020-08-04 16:24] LABS: URINE LEUK ESTERASE MODERATE (NEGATIVE); URINE NITRITE - DIPSTICK POSITIVE (Negative)
[2020-08-04 16:42] LABS: URINE BACTERIA MANY hpf; URINE RBC TNTC RBC/hpf (0-5); URINE SQUAMOUS EPITHELIAL CELL FEW EPI/hpf (0-FEW); URINE WBC 20-50 WBC/hpf (0-5)
[2020-08-04 18:00] VITALS: BP 203/94
[2020-08-04 18:34] LABS: ACT PARTIAL THROMBO TIME 99.3 SECONDS (20.0-32.5); PROTHROMBIN TIME > 170.9 SECONDS (9.0-12.5)
[2020-08-04] MEDS ORDERED: WARFARIN5 MG PO (19:01)
== END 2020-08-04 18:00 | disposition short-term general hospital (02) | DRG 65 ==
LOC: ED 14:40
DX: I60.9 Nontraumatic subarachnoid hemorrhage, unspecified (principal); S37.001A Unspecified injury of right kidney, initial encounter; R31.9 Hematuria, unspecified; R58 Hemorrhage, not elsewhere classified; I10 Essential (primary) hypertension; G40.909 Epilepsy, unspecified, not intractable, without status epilepticus; Z21 Asymptomatic human immunodeficiency virus [HIV] infection status; I25.10 Atherosclerotic heart disease of native coronary artery without angina pectoris; I73.9 Peripheral vascular disease, unspecified; F31.9 Bipolar disorder, unspecified; W19.XXXA Unspecified fall, initial encounter; Y92.149 Unspecified place in prison as the place of occurrence of the external cause; Z86.718 Personal history of other venous thrombosis and embolism; Z79.01 Long term (current) use of anticoagulants; Z95.5 Presence of coronary angioplasty implant and graft; Z20.828 Contact with and (suspected) exposure to other viral communicable diseases

== ENCOUNTER 2020-08-21 12:13 | Inpatient (IN) | payer OTHER ==
[~2020-08-21] VITALS: Ht 182.9 cm; Wt 100.0 kg
[~2020-08-21 12:13] MED LIST changes: +WARFARIN5 MG PO
--- NOTE | 2020-08-21 12:13 | NUR ---
PATIENT TO ROOM VIA EMS AND PHYSICIAN NOTIFIED OF PATIENT STATUS
--- NOTE | 2020-08-21 13:00 | NUR ---
IV ACCESS AND LAB DRAWN ORDERED, PT TOLERATED WITHOUT INCIDENT, EKG COMPLETED ORDERED. GUARG REMAINS AT BEDSIDE PT IOS VERY VAGUE WITH ANSWERS TO ANY QUESTIONS.
[2020-08-21 13:49] LABS: HEMATOCRIT 31.3 % (39.0-50.0); HEMOGLOBIN 9.7 g/dl (14.0-18.0); IMMATURE GRANULOCYTES 0.4 % (0.0-5.0); MEAN CELL VOLUME 96.6 fL CALC (80.0-100.0); MEAN CORPUSCULAR HGB 29.9 pG CALC (26.0-32.0); RED BLOOD COUNT 3.24 mill/uL (4.70-6.10); RED CELL DISTRI WIDTH 16.1 % (11.5-15.5)
[2020-08-21 14:00] LABS: ALBUMIN 4.2 g/dL (3.2-5.0); ALKALINE PHOSPHATASE 123 u/l (38-126); ANION GAP 12 (6-22 (CALC)); BILIRUBIN, TOTAL 0.5 mg/dL (0.0-1.4); BUN 19 mg/dL (8-23); BUN/CREATININE RATIO 18 (12-20 (CALC)); CARBON DIOXIDE 25 mmol/l (22-30); CHLORIDE 107 mmol/l (95-108); CREATININE 1.1 mg/dL (0.7-1.3); GFR > 60 ML/MIN (>=60 (CALC)); GFR FOR AFR.AMER. > 60 ML/MIN (>=60 (CALC)); POTASSIUM 3.9 mmol/l (3.5-5.1); SODIUM 140 mmol/l (137-146); TOTAL PROTEIN 8.2 g/dL (6.3-8.2)
[2020-08-21 14:01] LABS: SGOT/AST 67 u/l (19-48)
[2020-08-21 14:09] LABS: C-REACTIVE PROTEIN < 0.5 mg/dL (0-0.9)
--- NOTE | 2020-08-21 15:02 | NUR ---
PT RESTING, GUARD REMAINS AT BEDSIDE NO S/S OF DISTRESS NOTED, CALL AUDIE HERNANDEZ
--- NOTE | 2020-08-21 16:00 | NUR ---
PT RESTING OFFERS NO COMPLAINTS IVF AND ABT INFUSING ORDERED.
--- NOTE | 2020-08-21 17:15 | NUR ---
PT TOLERATED RADIOLOGY EXAM WITHOUT INCIDENT, AWARE OF AWAAITING RESULTS AND POTENTIAL ADMISSION, CALL BEL WITHIN REACH
--- NOTE | 2020-08-21 18:25 | NUR ---
PT AWARE OF PLANNED ADMISSION, KOVACS BAG LEEAKING CHANGED BAG WITHOUT INCIDENT
[2020-08-21 19:19] LABS: INTERNATIONAL NORMALIZED RATIO 2.3 RATIO (0.7-1.3); PROTHROMBIN TIME 22.5 SECONDS (9.0-12.5)
[2020-08-21] MEDS ORDERED: DOCUSATE SOD100 MG PO (20:54)
[2020-08-21] MEDS ORDERED: VIREAD300 MG PO (20:55)
[2020-08-21] MEDS ORDERED: TOPROL XL25 M1 PO (20:56)
--- NOTE | 2020-08-21 21:02 | NUR ---
ADVANCED MANUFACTURING CONSULTANT NOTIFIED OF MEDS NEEDED.
--- NOTE | 2020-08-21 21:20 | NUR ---
WATER AND GATORADE GIVEN
--- NOTE | 2020-08-21 22:30 | NUR ---
IN ROOM 16 IN ER. IS MS TELEMETRY PATIENT BEING HOUSED IN ER. GUARDS X 2 AT BEDSIDE. CONTINUES WITH DRY NONPRODUCTIVE COUGH. ON ROOM AIR WITH SAT OF 97%
--- NOTE | 2020-08-21 22:52 | NUR ---
PT WAS PLAYING WITH IV...BECAUSE HE IS HUNGRY. NO FOOD AVAILABLE IN ER SO MEDICAL TRANSCRIPTION SUPERVISOR IS ARRANGING FOR MEAL TO BE BROUGHT FROM [facility].
--- NOTE | 2020-08-21 23:14 | NUR ---
PT GIVEN NIGHT MEDS AND T.V. DINNER GIVEN.
[2020-08-22 03:59] LABS: HEMATOCRIT 25.7 % (39.0-50.0); IMMATURE GRANULOCYTES 0.4 % (0.0-5.0); MEAN CELL VOLUME 95.9 fL CALC (80.0-100.0); MEAN CORPUSCULAR HGB 29.9 pG CALC (26.0-32.0); MEAN CORPUSCULAR HGB CONC 31.1 g/dL CAL (32.0-36.0); NEUT# 2.17 thou/uL (1.82-7.42); RED BLOOD COUNT 2.68 mill/uL (4.70-6.10)
[2020-08-22 04:16] LABS: ALBUMIN 3.4 g/dL (3.2-5.0); ALKALINE PHOSPHATASE 99 u/l (38-126); BILIRUBIN, TOTAL 0.3 mg/dL (0.0-1.4); BUN 17 mg/dL (8-23); BUN/CREATININE RATIO 18 (12-20 (CALC)); CARBON DIOXIDE 20 mmol/l (22-30); CHLORIDE 110 mmol/l (95-108); CREATININE 0.9 mg/dL (0.7-1.3); GFR > 60 ML/MIN (>=60 (CALC)); GFR FOR AFR.AMER. > 60 ML/MIN (>=60 (CALC)); SGOT/AST 45 u/l (19-48); SODIUM 137 mmol/l (137-146)
[2020-08-22 04:18] LABS: ANION GAP 11 (6-22 (CALC))
[2020-08-22 04:19] LABS: TOTAL PROTEIN 6.5 g/dL (6.3-8.2)
--- NOTE | 2020-08-22 06:00 | NUR ---
PT SLEEPING. GUARD AT BEDSIDE. VSS. KOVACS EMPTIED FOR 650 CC OF CLEAR YELLOW URINE. RESP EASY REG.
[2020-08-22 07:00] VITALS: BP 118/59; BP 123/64
--- NOTE | 2020-08-22 07:00 | NUR ---
recieved for care,resting quietly, No distress. Iv #20 in RAC intact. Evans draining clear urine. Call de la garza in reach, bed in low position.
--- NOTE | 2020-08-22 07:00 | NUR ---
Recieved for care, resting quietly. No apparent distress. V\S STABLE. Aware of imminent admission. Iv site #20 RAC intact.
--- NOTE | 2020-08-22 07:15 | NUR ---
REPORT TO ONCOMING SHIFT.
--- NOTE | 2020-08-22 07:53 | NUR ---
Patient transferred to room MS 260 VIA WHEELCHAIR. STABLE UPON TRANSFER. IV INTACT.
[2020-08-22] MEDS ORDERED: DEXAMETHASON6 MG PO (09:59)
[2020-08-22] MEDS ORDERED: ZITHROMAX500 MG PO (09:59)
--- NOTE | 2020-08-22 10:59 | NUR ---
REPORT CALLED TO [facility] TO SKYLER VIEYRA RN IN SBAR FORMAT.
[2020-08-22 13:00] VITALS: BP 123/64
--- NOTE | 2020-08-22 13:00 | NUR ---
[facility].
== END 2020-08-22 13:00 | disposition designated cancer center or children's hospital (05) | DRG 177 ==
LOC: ED 12:13 → ED-I 18:09 → ED 18:30 → ED-I 18:31
PROVIDERS: Family Medicine; ADMIT Internal Medicine; ATTEND Internal Medicine
DX: U07.1 COVID-19 (principal); J12.89 Other viral pneumonia; R09.02 Hypoxemia; G40.909 Epilepsy, unspecified, not intractable, without status epilepticus; I25.10 Atherosclerotic heart disease of native coronary artery without angina pectoris; I73.9 Peripheral vascular disease, unspecified; F10.20 Alcohol dependence, uncomplicated; F31.9 Bipolar disorder, unspecified; I10 Essential (primary) hypertension; Z95.5 Presence of coronary angioplasty implant and graft; Z86.718 Personal history of other venous thrombosis and embolism; Z79.01 Long term (current) use of anticoagulants; Z21 Asymptomatic human immunodeficiency virus [HIV] infection status
CPT/HCPCS: Q9967

== ENCOUNTER 2021-06-28 23:02 | Inpatient (IN) | payer OTHER ==
[~2021-06-28] VITALS: Ht 185.4 cm; Wt 124.5 kg
[~2021-06-28 23:02] MED LIST changes: +DEXAMETHASON6 MG PO; +DOCUSATE SOD100 MG PO; +TOPROL XL25 M1 PO; +ZITHROMAX500 MG PO
--- NOTE | 2021-06-28 23:10 | NUR ---
PT TO ROOM VIA WHEELCHAIR FOR BEDSIDE TRIAGE, WITH GUARDS AT SIDE
[2021-06-28 23:59] LABS: HEMOGLOBIN 14.1 g/dl (14.0-18.0); IMMATURE GRANULOCYTES 0.5 % (0.0-5.0); MEAN CELL VOLUME 95.7 fL CALC (80.0-100.0); MEAN CORPUSCULAR HGB 32.1 pG CALC (26.0-32.0); MEAN CORPUSCULAR HGB CONC 33.6 g/dL CAL (32.0-36.0); NEUT# 17.51 thou/uL (1.82-7.42); RED BLOOD COUNT 4.39 mill/uL (4.70-6.10); RED CELL DISTRI WIDTH 14.9 % (11.5-15.5)
[2021-06-29 00:19] LABS: ALBUMIN 5.1 g/dL (3.2-5.0); CREATININE 1.5 mg/dL (0.7-1.3); MAGNESIUM 1.6 mg/dL (1.6-2.3); POTASSIUM 4.1 mmol/l (3.5-5.1); TOTAL PROTEIN 8.7 g/dL (6.3-8.2)
--- NOTE | 2021-06-29 00:30 | NUR ---
Reassessment of patient completed. No distress noted. OFFICERS AT BEDSIDE. PT IN [facility].
[2021-06-29 00:33] LABS: BILIRUBIN, TOTAL 0.9 mg/dL (0.0-1.4)
[2021-06-29 00:37] LABS: INTERNATIONAL NORMALIZED RATIO 2.1 RATIO (0.7-1.3); PROTHROMBIN TIME 20.9 SECONDS (9.0-12.5)
[2021-06-29 03:02] VITALS: BP 114/78
--- NOTE | 2021-06-29 03:02 | NUR ---
PT ARRIVED TO MS2 VIA WHEELCHAIR ACCOMPANIED BY ER NURSE AND 2 GUARDS, ORIENTED PT TO ROOM AND CALL LIGHT, PT AMBULATED WITH SLOW, STEADY GAIT TO BATHROOM, UA OBTAINED AND SENT TO LAB. PT ASSISTED TO BED. PT ALERT AND ORIENTED X3, FLAT AFFECT, DOES NOT MAKE EYE CONTACT, PT UNCOOPERATIVE, UNABLE TO ANSWER SIMPLE QUESTIONS AT TIMES. NOTED SEVERE EDEMA AND REDNESS TO LLE, PEDAL PULSES WEAK BILAT, BRISK CAPILLARY REFILL. L CALF CIRCUMFERENCE 46CM, SEIZURE PRECAUTIONS. PHOTO OBTAINED OF LLE, ELEVATED ON PILLOW. RLE SHACKLED TO THE BED. PT C/O PAIN 07/14 OFFERED PT MOTRIN, PT AGREED. ADMISSION ASSESSMENT COMPLETED. CALL LIGHT IN REACH,CONTINUE TO MONITOR.
--- NOTE | 2021-06-29 03:13 | NUR ---
Admission Note Report Given to: TOMÁS CURRY Transported by: X Wheelchair Stretcher Transported with: X Nurse Transporter X Patent IV O2 Dean Of Admissions Location: ICU X MS2
[2021-06-29 03:59] LABS: URINE BILIRUBIN - DIPSTICK NEGATIVE (NEGATIVE); URINE BLOOD DIPSTICK TRACE-INTACT (NEGATIVE); URINE COLOR YELLOW; URINE GLUCOSE - DIPSTICK NEGATIVE (NEGATIVE); URINE KETONE NEGATIVE (NEGATIVE); URINE LEUK ESTERASE NEGATIVE (NEGATIVE); URINE PROTEIN - DIPSTICK 30 mg/dL (NEG-TRACE); URINE UROBILINOGEN - DIPSTICK 0.2 E.U./dL (0.2)
[2021-06-29 04:00] LABS: URINE NITRITE - DIPSTICK NEGATIVE (Negative)
[2021-06-29 04:16] LABS: URINE SQUAMOUS EPITHELIAL CELL FEW EPI/hpf (0-FEW)
[2021-06-29 07:55] VITALS: BP 90/60
--- NOTE | 2021-06-29 07:55 | NUR ---
PT LAYING IN BED. X2 GUARDS AT BEDSIDE. A&O X3. PT C/O OF FEELING NAUSEOUS AND WEAK. PT HYPOTENSIVE UPON ASSESSMENT WITH VS MACHINE READING 74/60, BP REASSESSED MANUALLY 90/60; DR العراقي NOTIFIED; ORDER OBTAINED FOR 500 CC BOLUS. ORDER WRITTEN AND FAXED TO PHARMACY. CLEAR BREATH SOUNDS UPON AUSCULTATION. ACTIVE BOWEL SOUNDS X4 QUADRANTS. #20G LW WITH IVF INFUSING; #20G RAC HEALTHY AND PATENT. BILATERAL EDEMA NOTED; LLE ELEVATED ON PILLOW, REDDENED AND WARM TO TOUCH, PT REPORTS ONSET A FEW DAYS AGO. PEDAL PULSES STRONG UPON PALPATION. NO OTHER NEEDS AT THIS TIME. ASSESSMENT COMPLETED. DISCUSSED POC. CALL LIGHT WITHIN REACH.
--- NOTE | 2021-06-29 08:45 | NUR ---
#20LW INFILTRATED DURING IVF BOLUS , ARM ELEVATED AND ICE PACK APPLIED IV INTACT UPON REMOVAL. #20G RAC HEALTHY AND PATENT, IVF BOLUS REINITIATED AT THIS TIME.
[2021-06-29 10:06] VITALS: BP 100/59
--- NOTE | 2021-06-29 12:38 | NUR ---
PT IS 65 YOM WHO PRESENTS WITH CELLULITIS. ALL MEDS IN PTS CHART REVIEWED. SCR = 1.5 MG/DL CRCL = 68 ML/MIN WBC = 18.2 THOUS/UL TEMP = 99 F CULTURES PENDING. PT IS ON ZOSYN 3.375G IV Q6H. VANCOMYCIN ORDERED FOR PHARMACY TO DOSE. START VANCOMYCIN 1G IV Q12H. TROUGH TO BE DRAWN 30 MIN B4 4TH DOSE ON 06/30 @ 1200. GOAL TROUGH IS 10-15 MCG/ML.
--- NOTE | 2021-06-29 13:34 | NUR ---
BLADDER SCAN COMPLETED AT THIS TIME DUE TO PT NOT VOIDING. BLADDER SCAN RESULT OF 145CC, WILL CONTINUE TO MONITOR. NO OTHER NEEDS AT THIS TIME. CALL LIGHT WITHIN REACH, X2 GUARDS AT BEDSIDE REMAIN.
--- NOTE | 2021-06-29 14:56 | NUR ---
#22G RW INITIATED X1 ATTEMPT BYFerdinand SHELL RN. #20G TO RAC REMOVED DUE TO EARLY SIGNS OF INFILTRATION/LEAKING. IV VANCO REINITIATED AT THIS TIME. NO OTHER NEEDS AT THIS TIME. X2 GUARDS REMAIN AT BEDSIDE.
--- NOTE | 2021-06-29 16:24 | NUR ---
BP CONTINUES TO REMAIN ON THE SOFTER SIDE; 90/55; ASYMPTOMATIC AT THIS TIME. NO OTHER NEEDS. X2 GUARDS AT BEDSIDE. CALL LIGHT WITHIN REACH.
--- NOTE | 2021-06-29 17:50 | NUR ---
BLADDER SCAN PREFORMED BY THIS FACILITY ENVIRONMENTAL TECHNICIAN AND April STERLING RN, 124 CC OF URINE NOTED WITH SCAN. PT DENIES THE NEED TO VOID AT THIS TIME. NO PAIN, DISCOMFORT OR DISTENTION NOTED. NO OTHER NEEDS AT THIS TIME. CALL LIGHT WITHIN REACH.
[2021-06-29 19:30] VITALS: BP 98/50
--- NOTE | 2021-06-29 20:50 | NUR ---
PT RETURNING FROM BATHROOM, PT HAD A BM AND VOIDED IN TOILET, NO SIGNS OF DISTRESS NOTED, RESP EVEN AND UNLABORED. PT ALERT AND ORIENTED X3, GUARDS X2 AT BEDSIDE, PT C/O PAIN 7/10 TO LLE, LLE REDDENED MEASURED CALF CIRCUMFERENCE 48CM, ENCOURAGED ELEVATION, PT C/O OF SORES TO HIS MOUTH, AND PAINFUL TO EAT. NOTED SMALL SORES TO GUMS AND TONGUE, MD NOTIFIED AND [place]STATIN ORDERED. PT ANTIVIRAL MEDS TO BE BROUGHT IN FROM [facility] FOR PHARMACY TO PROFILE IN THE AM, ASSESSMENT COMPLETED, CALL LIGHT IN REACH,CONTINUE TO MONITOR.
--- NOTE | 2021-06-30 00:35 | NUR ---
PT RESTING IN BED AWAKE, GUARDS X2 AT BEDSIDE, PT C/O PAIN 04/13 TO LLE, PT MEDICATED PER MAR, IV ANITIBIOTICS INFUSING, CALL LIGHT IN REACH,CONTINUE TO MONITOR.
[2021-06-30 04:00] VITALS: BP 82/48
[2021-06-30 04:30] VITALS: BP 94/52
--- NOTE | 2021-06-30 04:41 | NUR ---
PT RESTING IN BED, NO SIGNS OF DISTRESS NOTED, RESP EVEN AND UNLABORED. BEAM DYER OPERATOR AT BEDSIDE, PT VOICES NO NEEDS OR COMPLAINTS AT THIS TIME. CALL LIGHT IN REACH,CONTINUE TO MONITOR.
[2021-06-30 05:23] LABS: HEMATOCRIT 35.1 % (39.0-50.0); HEMOGLOBIN 11.7 g/dl (14.0-18.0); MEAN CELL VOLUME 97.5 fL CALC (80.0-100.0); MEAN CORPUSCULAR HGB 32.5 pG CALC (26.0-32.0); MEAN CORPUSCULAR HGB CONC 33.3 g/dL CAL (32.0-36.0); RED BLOOD COUNT 3.6 mill/uL (4.70-6.10)
[2021-06-30 06:48] LABS: ALBUMIN 3.3 g/dL (3.2-5.0); BILIRUBIN, TOTAL 0.8 mg/dL (0.0-1.4); CREATININE 3.8 mg/dL (0.7-1.3); TOTAL PROTEIN 6.1 g/dL (6.3-8.2)
[2021-06-30 07:20] VITALS: BP 86/48
--- NOTE | 2021-06-30 08:00 | NUR ---
PT AWAKE, ALERT AND ORIENTED. PT SUPERVISED BY LAW ENFORCEMENT OFFICERS. PT IN 1POINT SHACKLE TO RIGHT ANKLE. PT DENIES ANY IMMEDIATE NEEDS AT THIS TIME. LUNG SOUNDS CLEAR ON RA. BREATHS ARE EVEN AND UNLABORED. ABDOMEN SOFT ROUND AND NONTENDER. BOWEL SOUNDS ACTIVE, IV TO RIGHT HAND PATENT WITH IV FLUIDS INFUSING. PERIPHERAL PULSES PALPABLE. SAFETY MEASURES IN PLACE AND CALL LIGHT WITHIN PATIENTS REACH. WILL MONITOR PATIENT CLOSELY
[2021-06-30 09:01] LABS: INTERNATIONAL NORMALIZED RATIO 1.6 RATIO (0.7-1.3)
--- NOTE | 2021-06-30 12:00 | NUR ---
PT RESTING COMFORTABLY. NO IMMEDIATE NEEDS AT THIS TIME
--- NOTE | 2021-06-30 12:39 | NUR ---
S: EDD WOODARD is a 65 M who presents with cellulitis. He has a history of heart disease, HTN, mental disorder, seizure disorder, HIV, GERD, gastritis and DVT. All medications in patient's chart were reviewed. O: VS: BP 86/48 mmHg, P 79 bpm, RR 20 breath/min, T 99.2 F W 122 kg, HT 73 in, Scr= 3.8 mg/dL, CrCl= 27 ml/min A: Blood culture is pending. P: Patient is on cefepime 1g IV Q12H and metronidazole 500mg IV Q8H. Patient had a significant increase in Scr denoting a substantial drop in CrCl and kidney function. Vancomycin trough on 06/30/21 = 20 ug/mL, with a goal trough of 10-15 ug/mL. Vancomycin dosing changed to 1g IV Q24H to begin on 07/01/21 at 0930. Next vancomoycin trough will be drawn on 07/04/21 at 9000. Pharmacy will follow and or advise on antibiotics use as needed.
[2021-06-30 16:38] VITALS: BP 102/55
--- NOTE | 2021-06-30 19:00 | NUR ---
RECEIVED REPORT FROM DAY NURSE ASSUMED PATIENT CARE.
--- NOTE | 2021-06-30 19:38 | NUR ---
PATIENT SPO2@ 90% ON ROOM AIR, O2 APPLIED VIA NASAL CANULA AT 1LPM SPO2 NOW AT 93-94%.
--- NOTE | 2021-06-30 20:00 | NUR ---
PATIENT ALERT ORIENTED, SPEECH GARBLED, WITH TRIPLE LUMEN RT IJ PATENT FLUSHES WELL, WITH ONGOING NS @ 75CC/HR INFUSING WELL, CLEAR LUNG SOUNDS SPO2 BACK AT 945 ON RA, , ACTIVE BOWEL SOUNDS LBM 06/29, LEFT LEG TRACE EDEMA RED AND WARM TO TOUCH, LEG IS ELEVATED, PATIENT HAS TWO GUARDS IN ROOM, PATIENT RT LEG SHACKLED TO BED.
[2021-06-30 20:15] VITALS: BP 105/63
--- NOTE | 2021-07-01 | NUR ---
PATIENT ASSISTED TO THE BATHROOM, PATIENT VOIDED, AND ASSISTED BACK IN BED.CURRENTLY RESTING WITH EYES CLOSED, LEFT LOWER EXTREMITY ELEVATED, CALL LIGHT AT REACH.
[2021-07-01 04:00] VITALS: BP 105/56
--- NOTE | 2021-07-01 04:15 | NUR ---
PATIENT ASSISTED BACK IN BED, LEFT LEG ELEVATED, BLOOD SAMPLE TAKEN FROM TRIPLE LUMEMN AND FLUSHED PER PROTOCOL, PATIENT BACK RT ANKLE SHACKLED TO BED, CALL LIGHT AT [facility].
[2021-07-01 05:52] LABS: HEMATOCRIT 33.3 % (39.0-50.0); HEMOGLOBIN 10.8 g/dl (14.0-18.0); MEAN CELL VOLUME 97.4 fL CALC (80.0-100.0); MEAN CORPUSCULAR HGB 31.6 pG CALC (26.0-32.0); MEAN CORPUSCULAR HGB CONC 32.4 g/dL CAL (32.0-36.0); RED BLOOD COUNT 3.42 mill/uL (4.70-6.10); RED CELL DISTRI WIDTH 16.3 % (11.5-15.5)
[2021-07-01 05:56] LABS: INTERNATIONAL NORMALIZED RATIO 1.5 RATIO (0.7-1.3)
[2021-07-01 06:06] LABS: ALBUMIN 3.2 g/dL (3.2-5.0); CREATININE 2.9 mg/dL (0.7-1.3); MAGNESIUM 1.8 mg/dL (1.6-2.3); POTASSIUM 3.8 mmol/l (3.5-5.1)
--- NOTE | 2021-07-01 08:00 | NUR ---
PT AWAKE AND ORIENTED. PT RESTING IN BED ACCOMPANIED BY 2 LAW ENFORCEMENT OFFICERS. PT SHACKLED TO BED VIA RIGHT ANKLE. PT DENIES ANY IMMEDIATE NEEDS. VS AND ASSESSMENT COMPLETE. HR NORMAL. LUNG ARE CLEAR. BREATHS ARE EVEN AND UNLABORED. ABDOMEN IS ROUND AND NONTENDER. BOWEL SOUNDS ACTIVE. PERIPHERAL PULSES PALPABLE. RIGHT LOWER LEG CELLULITIS WARM TO TOUCH, EDEMA 2+ AND ERRYTHMIA PRESENT. RIJ INTACT AND ALL 3 LUMENS PATENT. PERIPHERAL PULSES PALPABLE. PT UP TO BATHROOM. SAFETY MEASURES ARE IN PLACED AND CALL LIGHT WITHIN PATIENTS REACH. WILL MONITOR PT CLOSELY
--- NOTE | 2021-07-01 12:00 | NUR ---
NO CHANGE IN PATIENT STATUS. PT VERBALIZES NO IMMEDIATE MEEDS AT THIS TIME. WILL CONTINUE TO MONITOR
--- NOTE | 2021-07-01 12:35 | NUR ---
PT TRANSFERED FOR ULTRASOUND VIA STRETCHER IN STABLE CONDITION ACCOMPANIED BY LAW ENFORCEMENT
--- NOTE | 2021-07-01 13:30 | NUR ---
SUCCESSFUL VIDEO CONFERENCE BETWEEN DR. العراقي AND PATIENT. PHYSICIAN IS REQUESTING PATIENTS HIV MEDICATIONS FROM [facility]. ATTENDING OFFICER IS REQUESTING THAT INFORMATION FROM THE FACILITY
--- NOTE | 2021-07-01 14:23 | NUR ---
HOLD ALL BLOOD THINNERS FOR PICC LINE PLACEMENT ON 07/02/21 PER [facility]
[2021-07-01 16:07] VITALS: BP 112/69
--- NOTE | 2021-07-01 16:25 | NUR ---
PATIENT AWAKE AND RESTING IN BED. NO CHANGE IN PATIENT STATUS. PT DENIES ANY IMMEDIATE NEEDS AT THIS TIME. SAFETY PRECAUTIONS IN PLACE. CALL LIGHT WITHIN PATIENTS REACH. WILL CONTINUE TO MONITOR
[2021-07-01 19:15] VITALS: BP 143/83
--- NOTE | 2021-07-01 20:00 | NUR ---
PHYSICAL ASSESMENT COMPLETE. PT CURRENTLY DENIES PAIN OR DISCOMFORT. SCHEDULED MEDICATIONS AND PRN MEDICATION ADMINISTERED, SEE E-MAR. PT DENIES ANY NEEDS AT THIS TIME. PLAN OF CARE REVIEWED, PT DENIES QUESTIONS, VERBALIZES UNDERSTANDING. PT IS SHACKLED TO THE BED WITH CIRCULATION VERIFIED. 2 GUARDS ARE PRESENT AT BEDSIDE. ITEMS WITHIN REACH, BED LOCKED IN LOW POSITION W/ BEDRAILS UP X2. CALL BRONSON WITHIN REACH, AGREES TO CALL PRN.
--- NOTE | 2021-07-02 | NUR ---
PT LAYING IN BED WITH EYES CLOSED, APPEARS TO BE SLEEPING, APPEARS COMFORTABLE AND IN NO DISTRESS. RESPIRATIONS REGULAR AND UNLABORED. ITEMS REMAIN WITHIN REACH, CALL BRONSON REMAINS WITHIN REACH. BED REMAINS LOCKED AND IN LOW POSITION WITH BEDRAILS UP X2. PT SHACKLED TO THE BED. GOOD CIRCULATION VERIFIED. 2 GUARDS AT BESIDE. WILL CONTINUE TO MONITOR.
--- NOTE | 2021-07-02 03:53 | NUR ---
PT RESTING IN BED, NO SIGNS OF DISTRESS NOTED, RESP EVEN AND UNLABORED. PT VOICES NO NEEDS OR COMPLAINTS AT THIS TIME. CALL LIGHT IN REACH, CONTINUE TO MONITOR.
[2021-07-02 04:00] VITALS: BP 111/66
[2021-07-02 06:29] LABS: HEMATOCRIT 31.5 % (39.0-50.0); HEMOGLOBIN 10.3 g/dl (14.0-18.0); MEAN CELL VOLUME 97.5 fL CALC (80.0-100.0); MEAN CORPUSCULAR HGB 31.9 pG CALC (26.0-32.0); MEAN CORPUSCULAR HGB CONC 32.7 g/dL CAL (32.0-36.0); RED BLOOD COUNT 3.23 mill/uL (4.70-6.10); RED CELL DISTRI WIDTH 16.5 % (11.5-15.5)
[2021-07-02 06:32] LABS: INTERNATIONAL NORMALIZED RATIO 1.6 RATIO (0.7-1.3); PROTHROMBIN TIME 15.9 SECONDS (9.0-12.5)
[2021-07-02 06:48] LABS: MAGNESIUM 1.9 mg/dL (1.6-2.3); POTASSIUM 3.8 mmol/l (3.5-5.1)
[2021-07-02 06:49] LABS: CREATININE 1.9 mg/dL (0.7-1.3)
[2021-07-02 08:00] VITALS: BP 114/63
--- NOTE | 2021-07-02 08:00 | NUR ---
BEDSIDE REPORT RECEIVED AT CHANGE OF SHIFT. PT LYING IN BED WATCHING TV. ASSESSMENT PERFORMED. HAS C/O 7/10 PAIN LEVEL TO LLE. LLE IS RED AND EDEMATOUS, WARM AND PAINFUL TO TOUCH. PRN/SCHEDULED CARDIAC SPECIALIST. WILL CONT TO MONITOR.
--- NOTE | 2021-07-02 08:25 | NUR ---
OT SCREEN COMPLETE. OT SERVICES NOT DEEMED NECESSARY AT THIS TIME.
[2021-07-02] MEDS ORDERED: TRAMADOL HCL50 MG PO (12:38)
[2021-07-02] MEDS ORDERED: LINEZOLID600 MG PO (12:38)
[2021-07-02] MEDS ORDERED: MAXIPIME1 GM IV (12:38)
--- NOTE | 2021-07-02 13:10 | NUR ---
Discharge instructions given. Patient verbalizes understanding of same. [facility] stable [facility]. All belongings sent with pt. picc line placed to [facility] today.
== END 2021-07-02 13:24 | disposition designated cancer center or children's hospital (05) | DRG 871 ==
LOC: ED 23:02 → ED-I 06-29 00:46 → ED 06-29 00:57 → MS2 06-29 00:58
PROVIDERS: Family Medicine; Internal Medicine Nephrology; Nurse Practitioner; ADMIT Internal Medicine; ATTEND Internal Medicine
PROC: 05HM33Z Insertion of Infusion Device into Right Internal Jugular Vein, Percutaneous Approach (ICD-10-PCS; principal; 2021-06-30)
PROC: 02HV33Z Insertion of Infusion Device into Superior Vena Cava, Percutaneous Approach (ICD-10-PCS; 2021-07-02)
PROC: B518ZZA Fluoroscopy of Superior Vena Cava, Guidance (ICD-10-PCS; 2021-07-02)
DX: A41.9 Sepsis, unspecified organism (principal); N17.0 Acute kidney failure with tubular necrosis; L03.116 Cellulitis of left lower limb; E87.1 Hypo-osmolality and hyponatremia; E87.2 Acidosis; R65.20 Severe sepsis without septic shock; I10 Essential (primary) hypertension; I25.10 Atherosclerotic heart disease of native coronary artery without angina pectoris; D63.8 Anemia in other chronic diseases classified elsewhere; G40.909 Epilepsy, unspecified, not intractable, without status epilepticus; I95.9 Hypotension, unspecified; E86.9 Volume depletion, unspecified; K21.9 Gastro-esophageal reflux disease without esophagitis; F10.20 Alcohol dependence, uncomplicated; F31.9 Bipolar disorder, unspecified; Z21 Asymptomatic human immunodeficiency virus [HIV] infection status; Z86.718 Personal history of other venous thrombosis and embolism; Z79.01 Long term (current) use of anticoagulants; Z20.822 Contact with and (suspected) exposure to COVID-19
CPT/HCPCS: J0692; J2020; Q3014